=== PATIENT | male | born 1995 | race Hispanic/Latino ===

== ENCOUNTER 2017-10-20 05:03 | Emergency (ER) | payer SELFPAY ==
[2017-10-20 05:50] VITALS: BP 123/77; PULSE 79; RESP 18; TEMP 97.9
[2017-10-20 05:52] VITALS: O2SAT 100
--- NOTE | 2017-10-20 05:52 | C.PDOC ---
History Of Present Illness 22 yo male c/o left ear pain for 4 hours. Denies discharge, fever, URI symptoms , sob, or any other complaints. PT notes he put in water to "clean it out" without relief. Time Seen by Provider: 10/20/17 05:15 Chief Complaint (Nursing): ENT Problem History Per: Patient Onset/Duration Of Symptoms: Hrs Current Symptoms Are (Timing): Still Present Past Medical History Vital Signs: Last Vital Signs Temp 97.8 F 10/20/17 05:14 Pulse 81 10/20/17 05:14 Resp 16 10/20/17 05:14 BP 144/96 H 10/20/17 05:14 Pulse Ox 100 10/20/17 05:14 Family History: States: Unknown Family Hx - Social History Hx Alcohol Use: No Hx Substance Use: No - Immunization History Hx Tetanus Toxoid Vaccination: No Hx Influenza Vaccination: No Hx Pneumococcal Vaccination: No Review Of Systems Except As Marked, All Systems Reviewed And Found Negative. ENT: Positive for: Ear Pain Physical Exam - Physical Exam Appears: Well, Non-toxic, No Acute Distress Skin: Normal Color, Warm, Dry Head: Atraumatic, Normacephalic Eye(s): bilateral: Normal Inspection, EOMI Ear(s): Left: TM Erythema, Right: Normal, Bilateral: Other ((-) mastoid tenderness (-) tragus tenderness) Nose: Normal Oral Mucosa: Moist Throat: Normal, No Erythema, No Exudate, No Drooling Neck: Normal, Normal ROM, Supple Chest: Symmetrical Cardiovascular: Rhythm Regular Respiratory: Normal Breath Sounds Back: Normal Inspection Extremity: Normal ROM Neurological/Psych: Oriented x3, Normal Speech ED Course And Treatment O2 Sat by Pulse Oximetry: 100 Disposition - Disposition Disposition: HOME/ ROUTINE Disposition Time: 05:37 Condition: STABLE Additional Instructions: Follow up with primary medical doctor in 1-3 days without fail for further evaluation. Take medications as prescribed. Return to the emergency department at any time if symptoms persist or worsen. Prescriptions: Amoxicillin 875 mg PO BID #20 tablet Ibuprofen [Motrin] 600 mg PO Q6 PRN #20 tab PRN Reason: Pain, Mild (1-3) Instructions: Otitis Media (ED) - Clinical Impression Clinical Impression: Otitis media
== END 2017-10-20 05:59 | disposition home or self-care (01) ==
LOC: C.ER 05:03
DX: H66.92 Otitis media, unspecified, left ear (principal)